=== PATIENT | male | born 2000 | race Two or more races ===

== ENCOUNTER 2018-07-06 12:11 | Emergency (ER) | payer SELFPAY ==
[~2018-07-06] VITALS: Ht 172.7 cm; Wt 72.6 kg
[2018-07-06 13:16] VITALS: BP 126/72
[2018-07-06] MEDS ORDERED: cefTRIAXone SOD 1,000 MG VL IM ONE (14:30)
[2018-07-06] MEDS ORDERED: cefTRIAXone SOD 1,000 MG VL ONE (14:31)
[2018-07-06] MEDS ORDERED: LIDOCAINE 2% (LOCAL ANESTH.) PF 5ml SDV ONE (14:31)
== END 2018-07-06 14:51 | disposition home or self-care (01) ==
LOC: ER 12:11
DX: S81.002A Unspecified open wound, left knee, initial encounter (principal); S71.102A Unspecified open wound, left thigh, initial encounter; L08.9 Local infection of the skin and subcutaneous tissue, unspecified; F17.210 Nicotine dependence, cigarettes, uncomplicated; X58.XXXA Exposure to other specified factors, initial encounter; Y93.89 Activity, other specified; Y99.8 Other external cause status; Y92.89 Other specified places as the place of occurrence of the external cause
CPT/HCPCS: 96372; 99283; J0696; J2001